=== PATIENT | male | born 1965 | race Caucasian/White ===

== ENCOUNTER → 2021-06-18 10:41 | Outpatient (BNVA) | payer OTHER, SELFPAY | PROVIDERS: Family Provider Family Medicine; PCP Family Medicine; Visit Provider Emergency Medicine | DX: S40.851A Superficial foreign body of right upper arm, initial encounter (principal); W34.00XA Accidental discharge from unspecified firearms or gun, initial encounter | CPT/HCPCS: 73060 ==